=== PATIENT | female | born 1950 | race Caucasian/White ===

== ENCOUNTER 2018-03-03 14:25 | Emergency (ER) | payer OTHER ==
[~2018-03-03] VITALS: Ht 160 cm; Wt 83.9 kg
[2018-03-03] MEDS ORDERED: CANDESARTAN CILE8 MG PO (14:35)
[2018-03-03] MEDS ORDERED: NORVASC10 MG PO (14:36)
[2018-03-03] MEDS ORDERED: HYDROCHLOROTH12.5 M1 PO (14:37)
[2018-03-03] MEDS ORDERED: CRESTOR10 MG PO (14:37)
== END 2018-03-03 18:15 | disposition home or self-care (01) ==
LOC: ER 14:25
DX: S40.011A Contusion of right shoulder, initial encounter (principal); W18.09XA Striking against other object with subsequent fall, initial encounter; Y93.89 Activity, other specified; Y92.89 Other specified places as the place of occurrence of the external cause; Y99.8 Other external cause status